=== PATIENT | male | born 1940 ===

== ENCOUNTER → 2017-03-19 | Outpatient (CLI) | payer MEDICARE, OTHER | END | disposition home or self-care (01) | LOC: RADMN 09:47 | PROVIDERS: ATTEND Legal Medicine | DX: J43.2 Centrilobular emphysema (principal); J98.09 Other diseases of bronchus, not elsewhere classified; J92.9 Pleural plaque without asbestos; I51.7 Cardiomegaly; I70.0 Atherosclerosis of aorta; K80.20 Calculus of gallbladder without cholecystitis without obstruction; N28.1 Cyst of kidney, acquired; M47.814 Spondylosis without myelopathy or radiculopathy, thoracic region; X58.XXXA Exposure to other specified factors, initial encounter; Y93.9 Activity, unspecified; Y92.9 Unspecified place or not applicable; Y99.9 Unspecified external cause status | CPT/HCPCS: 71250 ==